=== PATIENT | female | born 1990 | race Two or more races ===

== ENCOUNTER 2024-06-05 05:14 | Inpatient (IN) | payer MEDICAID ==
[2024-06-03 11:59] LABS: Basophils # (auto) 0 10 ^3/uL (0-0.2); Basophils % (auto) 0.7 % (0.0-2.0); Eosinophils # (auto) 0 10 ^3/uL (0-0.8); Eosinophils % (auto) 0.4 % (0.0-7.0); Hematocrit 37.9 % (36.0-46.0); Lymphocytes # (auto) 1.1 10 ^3/uL (0.4-5.4); Lymphocytes % (auto) 16.2 % (10.0-50.0); Mean Corpuscular Hemoglobin 32.7 pg (28.0-32.0); Mean Corpuscular Hgb Conc. 34.3 g/dL (32.0-36.0); Mean Corpuscular Volume 95.4 fL (80.0-100.0); Monocytes # (auto) 0.6 10 ^3/uL (0-1.3); Monocytes % (auto) 8.7 % (0.0-12.0); Neutrophils # (auto) 4.9 10 ^3/uL (1.6-8.6); Platelet Count (auto) 312 10^3/uL (140-450); Red Blood Cells 3.97 10^6/uL (4.0-5.20); Red Cell Distribution Width 12.8 % (11.8-14.3); White Blood Cell 6.7 10^3/uL (4.4-10.8)
[2024-06-03 12:12] LABS: INR 0.92 (0.9-1.15); Partial Thromboplastin Time 26.1 SEC (24.5-34.5); Prothrombin Time 9.8 sec (9.3-11.8)
[2024-06-03 12:13] LABS: Alanine Aminotransferase 27 U/L (7-40); Albumin 4.1 g/dL (3.2-4.8); Alkaline Phosphatase 293 U/L (46-116); Anion Gap 6 (5-15); Aspartate Aminotransferase 30 U/L (13-40); Calcium 9.5 mg/dL (8.7-10.4); Carbon Dioxide 25 mmol/L (20-31); Chloride 107 mmol/L (98-107); Glucose 76 mg/dL (74-106); Potassium 3.5 mmol/L (3.5-5.1); Sodium 138 mmol/L (136-145)
[2024-06-03 12:14] LABS: BUN/Creatinine Ratio 6.9 (10.0-20.0); Bilirubin, Total 1.5 mg/dL (0.2-1.0); Blood Urea Nitrogen < 5 mg/dL (9-23); Total Protein 7.2 g/dL (5.7-8.2)
[2024-06-03 12:30] LABS: Amphetamine Screen, Urine Neg (NEGATIVE); Barbiturate Scree,Urine Neg (NEGATIVE); Benzodiazephine Screen, Urine Neg (NEGATIVE); Cocaine Screen, Urine Neg (NEGATIVE); Opiate Scree,Urine Neg (NEGATIVE)
[2024-06-03 12:31] LABS: Cannabinoid Screen, Urine Pos (NEGATIVE); Phencyclidine Screen, Urine Neg (NEGATIVE)
[2024-06-03 12:51] LABS: Urine Bacteria FEW /hpf (None Seen); Urine Blood Negative /uL (Negative); Urine Clarity Clear (Clear); Urine Color Light-Yellow (Yellow); Urine Protein, UAD Negative (Negative); Urine Specific Gravity 1.007 (1.001-1.035); Urine Urobilinogen Normal (Negative); Urine WBC 1 /hpf (0 - 5); Urine pH 5.5 (5.0-9.0)
[2024-06-04 08:06] LABS: RPR Non Reactive (Non Reactive)
[~2024-06-05] VITALS: Ht 154.9 cm; Wt 54.4 kg
[2024-06-05] VITALS (13 sets, daily range): BP systolic 98–117; BP diastolic 63–82; PULSE 57–82; RESP 14–20; TEMP 97.6–98.6; O2SAT 95–100
[2024-06-05] MEDS: LACTATED RINGER'S 1,000 ML IV ONE (06:55)
[2024-06-05] MEDS: LACTATED RINGER'S 1,000 ML IV SCH (06:55)
[2024-06-05 07:02] LABS: Alanine Aminotransferase 19 U/L (7-40); Albumin 3.9 g/dL (3.2-4.8); Alkaline Phosphatase 256 U/L (46-116); Anion Gap 8 (5-15); Aspartate Aminotransferase 29 U/L (13-40); BUN/Creatinine Ratio 9.6 (10.0-20.0); Blood Urea Nitrogen 8 mg/dL (9-23); Calcium 9.6 mg/dL (8.7-10.4); Carbon Dioxide 21 mmol/L (20-31); Chloride 108 mmol/L (98-107); Glucose 79 mg/dL (74-106); Potassium 3.9 mmol/L (3.5-5.1); Sodium 137 mmol/L (136-145); Total Protein 6.4 g/dL (5.7-8.2)
--- NOTE | 2024-06-05 07:14 | DVHHP2 ---
OB CC & HPI Date Date of Admission: Jun 05, 2024 Patient Identification: : 7 Para: 3 EDC: Jun 14, 2024 EGA: 38WKS Chief Complaints: Reason for admission: active labor Indication for : desires repeat Admission Nurse Assessment Rev: No History of Present Complaints PT IS ADMITTED IN LABOR FOR RCS ,SHE HAS BEEN NONCOMPLIANT WITH HER CARE. SHE HAD 3 PREVIOUS CSX3 AND DESIRES RCS BUT NO TUBAL Past Medical History Cardiac: No pertinent Hx Pulmonary: No pertinent Hx Central Nervous System: No pertinent Hx GI: No pertinent Hx Hemotology/Oncology: No pertinent Hx Hepatobiliary: No pertinent Hx Psychiatric: No pertinent Hx Musculoskeletal: No pertinent Hx Rheumotologic: No pertinent Hx Infectious Disease: No peritnent Hx ENT: No pertinent Hx Renal/: No pertinent Hx Endocrine: No pertinent Hx Dermatology: No pertinent Hx Past Surgical History: OB History OB History Care: Limited Care Ultrasounds: Normal mid trimester US Obstetrical Complications: None Medical Complications: None Allergies: Coded Allergies: NO KNOWN ALLERGIES (Unverified , 06/05/24) Current Medications Current Medications Medications (Trade) Dose Ordered Sig/Terry Route PRN Reason Start Time Stop Time Status Last Admin Lactated Ringer's 1,000 ml @ 125 mls/hr Q8H IV 06/05/24 05:30 06/05/24 06:55 Family & Social History Family/Social History Blood Type: Unknown Rubella: unknown RPR/VDRL: Negative GBS Status: Negative HBsAG: Negative Review of Systems Constitutional: No symptom reported Ears, Nose, & Throat: No symptom reported Eyes: No symptom reported Pulmonary/Respiratory: No symptom reported Cardiovascular: No symptom reported Gastrointestinal: No symptom reported Genitourinary: No symptom reported Musculoskeletal: No symptom reported Skin: No symptom reported Psychiatric: No symptom reported Endocrine: No symptom reported Hemotologic/Lymphatic: No symptom reported OB Admission Exam Physical Exam HEENT: TMs Normal, Fontanelles Normal, Nasal Mucosa Normal, Eyes non-injected, Oropharynx Normal, PERRLA, Moist Membranes, EOMI Heart: Rhythm Normal Lungs: Clear Abdomen: Non tender Extremities: Normal Reflexes: Normal Cervical Dilatation: 1cm Effacement: 25% Station: -2 Membranes: Intact Heart Rate: 130's Accelerations: Accelerations Present Decelerations: No Decelerations Short Term Variability: Present Chcf Variability: Average (6-25) Contractions on Admission: < 5 Minutes Apart Intensity: Moderate OB Plan Plan Admitting Diagnosis: IUP AT 38 WKS IN EARLY LABOR DESIRES RCS Plan: Section Other Plan: INFORMED CONSENT OBTAINED ,RISK S AND COMPL OF CS D/W PT.POSSIB OF BLEEDING,INFXN PE,DVT D/W PT.ALL QUESTIONS ANSWERED PT FULLY UNDERSTANDS WISHES TO PROCEED W/RCS LEANNA WILHELM DO Jun 05, 2024 07:14
[2024-06-05] MEDS ORDERED: IBUP-1456 PO (07:15)
[2024-06-05] MEDS ORDERED: DOCU-94 PO (07:15)
[2024-06-05] MEDS ORDERED: HYDR-4072 PO (07:15)
[2024-06-05 07:31] LABS: Urine Bacteria None Seen /hpf (None Seen)
[2024-06-05 07:37] LABS: Basophils # (auto) 0 10 ^3/uL (0-0.2); Basophils % (auto) 0.4 % (0.0-2.0); Eosinophils # (auto) 0 10 ^3/uL (0-0.8); Eosinophils % (auto) 0.4 % (0.0-7.0); Hematocrit 36.8 % (36.0-46.0); Hemoglobin 12.7 g/dL (12.2-16.2); Lymphocytes # (auto) 1.1 10 ^3/uL (0.4-5.4); Lymphocytes % (auto) 15.1 % (10.0-50.0); Mean Corpuscular Hgb Conc. 34.6 g/dL (32.0-36.0); Mean Corpuscular Volume 95.4 fL (80.0-100.0); Monocytes # (auto) 0.9 10 ^3/uL (0-1.3); Monocytes % (auto) 11.6 % (0.0-12.0); Neutrophils # (auto) 5.4 10 ^3/uL (1.6-8.6); Neutrophils % (auto) 72.5 % (37.0-80.0); Nucleated Red Blood Cells % 0.4 %; Platelet Count (auto) 308 10^3/uL (140-450); Red Blood Cells 3.86 10^6/uL (4.0-5.20); Red Cell Distribution Width 13.2 % (11.8-14.3); White Blood Cell 7.4 10^3/uL (4.4-10.8)
[2024-06-05 07:50] LABS: Urine Blood Negative /uL (Negative); Urine Clarity Clear (Clear); Urine Color Light-Yellow (Yellow); Urine Protein, UAD Negative (Negative); Urine Specific Gravity 1.012 (1.001-1.035); Urine Urobilinogen Normal (Negative); Urine WBC <1 /hpf (0 - 5)
[2024-06-05 08:15] LABS: Amphetamine Screen, Urine Neg (NEGATIVE)
[2024-06-05 08:16] LABS: Barbiturate Scree,Urine Neg (NEGATIVE); Benzodiazephine Screen, Urine Neg (NEGATIVE); Cannabinoid Screen, Urine Pos (NEGATIVE); Cocaine Screen, Urine Neg (NEGATIVE); Opiate Scree,Urine Neg (NEGATIVE); Phencyclidine Screen, Urine Neg (NEGATIVE)
[2024-06-05] MEDS: ceFAZolin 2 GM/D5W50ml 50 ML IV ONE (08:23)
[2024-06-05] MEDS ORDERED: ONDANSETRON HCL 4 MG/2 ML VIAL IV PRN (08:30)
[2024-06-05] MEDS ORDERED: ceFAZolin 1GM/50ML 50 ML IV SCH (08:30)
[2024-06-05] MEDS: GUM (CHEWING) 1 GUM CHEW CHEW ONE (08:30)
--- NOTE | 2024-06-05 09:31 | DVHOP2 ---
Operative Report DATE OF OPERATION:06/05/24 PREOPERATIVE DIAGNOSES: [iup at 38+wks in labor,desires rcs,noncompliant with penatal acre ,nuchal cordx1,thc pos ,drug use ] POSTOPERATIVE DIAGNOSES: [same] OPERATION PERFORMED: Repeat Section FINDINGS: [f] . Apgars of [9] and [9]. Weight [5-7] [good] crying tone. [clear ] amniotic fluid. Placenta and three-vessel were intact. Normal tubes, ovaries, and uterus. Moderate scar tissue. SURGEON: Shari Armenta D.O. BODY TECHNICIAN/PAINTER: burner technician, [nicolasa]. ANESTHESIOLOGIST: Abel sanchez ANESTHESIA: [Duramorph spinal, regional]. COMPLICATIONS: [none]. ESTIMATED BLOOD LOSS: [500] mL. BLOOD PRODUCTS USED: [na]. PROCEDURE IN DETAIL: The patient was taken to the operating room, placed in sitting position, and spinal was placed without difficulty. She was then prepped and draped in a sterile fashion. A low Pfannenstiel incision was made scapel. At this point, it was carried down through the rectus fascia, nicked in the midline, and carried laterally. The rectus muscles were in the midline. Peritoneum was identified and entered with sharp dissection. Vesicouterine peritoneum was taken off the lower uterine segment. A lower uterine transverse incision was made with a scalpel down the chorionic membranes, ruptured with hemostat. was in vertex position. One hand was placed in the lower uterine segment. Head was essentially delivered spontaneously. Nose and mouth were bulb suctioned. Shoulders and torso were delivered without difficulty. Again, pharynx, nose, and mouth were re-suctioned with vigorous crying tone. Cord was cut. The infant was handed off to the awaiting Respiratory. At this point, umbilical blood sample was taken. Placenta was removed. Uterus was exteriorized, cleared off all clots and debris, irrigated, and closed with a double layer of 0-Vicryl. The vesicouterine peritoneum was incorporated into this closure. We had complete hemostasis. EBL was [500] mL. The instrument, lap, and sponge count was correct x1. The uterus was placed back into the peritoneum. The peritoneal cavity was re-inspected and the lower uterine incision with good hemostasis. We closed the peritoneum with running continuous of 2-0 Vicryl. The Rectus Fascia was closed with 0-PDS, running continuous, looped-0. The skin was closed undermined, irrigated, and close with jennifer. CONDITION: The patient's and the infant's condition is stable and but guarded. SHARI ARMENTA DO Jun 05, 2024 09:31
--- NOTE | 2024-06-05 09:34 | POSTOP ---
Post-Operative Note Post-Operative Note Preop Diagnosis iup at 38wks in labor,thc pos,desires rcs,non compliant with noncompliancy,nuchal cord,previous csx3 Postop Diagnosis: same Operation performed rcs Specimen baby girl,apgars 9-9,pelvic adhesion Anesthesia: Regional Anesthesiologist: jocelyn Blood Loss(fluid mgmt) 500ml Surgeon Leanna Armenta Observer Gravity Prospecting nicolasa Implant na Complications & Mgmt none Date 06/05/24 Time 09:32 LEANNA ARMENTA DO Jun 05, 2024 09:34
[2024-06-05] MEDS: diphenhdrAMINE HCL 50 MG/1 ML VL IV PRN (11:39)
[2024-06-05] MEDS: LACT. RINGERS/OXYTOCIN 20UNITS 1,000 ML IV ONE (12:10)
[2024-06-05] MEDS: ceFAZolin 1GM/50ML 50 ML IV SCH (16:29)
[2024-06-05] MEDS: ACETAMINOPHEN IV 1000 MG/100ML (10MG/ML) IV PRN (17:15)
[2024-06-05 21:32] LABS: Basophils # (auto) 0 10 ^3/uL (0-0.2); Basophils % (auto) 0.1 % (0.0-2.0); Eosinophils # (auto) 0 10 ^3/uL (0-0.8); Hemoglobin 7.6 g/dL (12.2-16.2)
[2024-06-05 21:33] LABS: Hematocrit 22.1 % (36.0-46.0); Lymphocytes # (auto) 0.5 10 ^3/uL (0.4-5.4); Lymphocytes % (auto) 4.2 % (10.0-50.0); Mean Corpuscular Hemoglobin 33.2 pg (28.0-32.0); Mean Corpuscular Hgb Conc. 34.5 g/dL (32.0-36.0); Mean Corpuscular Volume 96.2 fL (80.0-100.0); Monocytes # (auto) 0.7 10 ^3/uL (0-1.3); Monocytes % (auto) 5.8 % (0.0-12.0); Neutrophils # (auto) 10.2 10 ^3/uL (1.6-8.6); Neutrophils % (auto) 89.9 % (37.0-80.0); Nucleated Red Blood Cells % 0.1 %; Platelet Count (auto) 175 10^3/uL (140-450); Red Blood Cells 2.29 10^6/uL (4.0-5.20); Red Cell Distribution Width 12.9 % (11.8-14.3); White Blood Cell 11.3 10^3/uL (4.4-10.8)
[2024-06-05 22:51] LABS: Basophils # (auto) 0 10 ^3/uL (0-0.2); Basophils % (auto) 0.3 % (0.0-2.0); Eosinophils # (auto) 0 10 ^3/uL (0-0.8); Hematocrit 32.4 % (36.0-46.0); Hemoglobin 11.2 g/dL (12.2-16.2); Lymphocytes # (auto) 0.7 10 ^3/uL (0.4-5.4); Lymphocytes % (auto) 4.4 % (10.0-50.0); Mean Corpuscular Hemoglobin 32.7 pg (28.0-32.0); Mean Corpuscular Hgb Conc. 34.5 g/dL (32.0-36.0); Mean Corpuscular Volume 94.9 fL (80.0-100.0); Monocytes # (auto) 0.9 10 ^3/uL (0-1.3); Monocytes % (auto) 5.4 % (0.0-12.0); Neutrophils # (auto) 15.1 10 ^3/uL (1.6-8.6); Neutrophils % (auto) 89.9 % (37.0-80.0); Platelet Count (auto) 274 10^3/uL (140-450); Red Blood Cells 3.42 10^6/uL (4.0-5.20); Red Cell Distribution Width 12.8 % (11.8-14.3); White Blood Cell 16.7 10^3/uL (4.4-10.8)
[2024-06-06] VITALS (14 sets, daily range): BP systolic 104–128; BP diastolic 63–86; PULSE 59–72; RESP 16–18; TEMP 97.4–98.4; O2SAT 96–99
--- NOTE | 2024-06-06 06:41 | DVHPN2 ---
Progress Note Date Seen: Jun 06, 2024 Subjective S: Lochia minimal. Ambulating and voiding well w/o feeling dizzy or lightheaded. Pain relieved with analgesics. Passing flatus but no BM yet. w/o problem Desires & Requests to be discharged tomorrow vital signs Vital Sign Date Time Temp Pulse Resp B/P (MAP) Pulse Ox O2 Delivery O2 Flow Rate FiO2 06/06/24 05:00 63 18 125/86 (99) 97 06/06/24 03:00 98.2 98.2 06/05/24 19:00 Room Air 06/05/24 10:05 0 06/05/24 10:05 100 Total Intake and Output 06/05/24 06/05/24 06/06/24 15:00 23:00 07:00 Intake Total 50 ml Output Total 350 ml 950 ml 1000 ml Balance -300 ml -950 ml -1000 ml medications Current Medications Medications Dose Ordered Sig/Terry Route Start Time Stop Time Status Last Admin Dose Admin Lactated Ringer's 1,000 ml @ 125 mls/hr Q8H IV 06/05/24 05:30 06/05/24 21:56 125 MLS/HR Ondansetron HCl 4 mg Q4HP PRN IV 06/05/24 08:30 Cefazolin Sodium 50 ml @ 100 mls/hr Q8H IV 06/05/24 16:30 06/06/24 08:59 06/06/24 00:17 100 MLS/HR Acetaminophen 1,000 mg Q8HPRN PRN IV 06/05/24 10:30 06/06/24 10:29 06/06/24 01:19 1,000 MG Diphenhydramine HCl 25 mg Q4HP PRN IV 06/05/24 11:30 06/05/24 15:31 25 MG laboratory and microbiology Laboratory Tests 06/05/24 22:27 06/05/24 05:54 Test 06/05/24 05:54 Range/Units Serum Glucose 79 74-106 mg/dL Objective O: A&O x3 NAD. Afebrile, VSS Chest: heart and lung sounds normal. Breasts: Nipples intact w/o cracks or soreness Abdomen: normal BS, soft, non-tender, no rebound or guarding, fundus firm @ U- 1, Lower abdominal Incision site with steri-strips on, open to fresh air same clean, dry and intact. Incision edges in good approximation. No edema, erythema or induration Extremities: no edema or tenderness Lochia - minimal Assessment/Plan A/P: 34 yo now Post operative & ppd # s/p Repeat Section doing well. Blood Type: O Rh: Positive Formula feeding Rubella: Unknown Pain control with oral medications Bowel regimen: Increase fluid intake and fiber in diet, Laxative PRN Discharge plan: May discharge home tomorrow if condition remains stable Plan discussed with: Patient, Spouse KELBYALEYDA CNM Jun 06, 2024 06:41
[2024-06-06] MEDS ORDERED: BISACODYL 10 MG RECT SUPP PR PRN (08:45)
[2024-06-06 09:46] LABS: Basophils # (auto) 0.1 10 ^3/uL (0-0.2); Basophils % (auto) 0.4 % (0.0-2.0); Eosinophils # (auto) 0 10 ^3/uL (0-0.8); Eosinophils % (auto) 0.1 % (0.0-7.0); Hematocrit 30.8 % (36.0-46.0); Hemoglobin 10.6 g/dL (12.2-16.2); Lymphocytes # (auto) 1.4 10 ^3/uL (0.4-5.4); Mean Corpuscular Hgb Conc. 34.4 g/dL (32.0-36.0); Mean Corpuscular Volume 95.8 fL (80.0-100.0); Monocytes # (auto) 0.8 10 ^3/uL (0-1.3); Monocytes % (auto) 6.1 % (0.0-12.0); Neutrophils # (auto) 10.7 10 ^3/uL (1.6-8.6); Neutrophils % (auto) 82.4 % (37.0-80.0); Nucleated Red Blood Cells % 0.1 %; Platelet Count (auto) 275 10^3/uL (140-450); Red Blood Cells 3.21 10^6/uL (4.0-5.20); Red Cell Distribution Width 13.1 % (11.8-14.3); White Blood Cell 12.9 10^3/uL (4.4-10.8)
[2024-06-06] MEDS: DOCUSATE CALCIUM 240 MG CAP PO SCH (11:04)
[2024-06-06] MEDS: DOCUSATE SOD 100 MG CAP PO SCH (11:04)
[2024-06-06] MEDS: HYDROcodone-ACET 5/325MG TAB PO PRN (11:04)
[2024-06-06] MEDS: SIMETHICONE 80 MG CHEWABLE TABLET PO SCH (12:00)
[2024-06-06] MEDS: IBUPROFEN 800 MG TAB PO PRN (14:55)
--- NOTE | 2024-06-07 02:25 | DVHPN2 ---
Progress Note Date Seen: Jun 07, 2024 Subjective S: Lochia minimal. Regular diet well tolerated. Ambulating and voiding well w/o feeling dizzy or lightheaded. Pain relieved with oral analgesics. Passing flatus but no BM yet. w/o problem Desires & Requests to be discharged today vital signs Vital Sign Date Time Temp Pulse Resp B/P (MAP) Pulse Ox O2 Delivery O2 Flow Rate FiO2 06/06/24 23:20 97.4 69 16 104/70 (81) 99 97.4 06/06/24 19:30 Room Air 06/05/24 10:05 0 06/05/24 10:05 100 Total Intake and Output 06/06/24 06/06/24 06/07/24 15:00 23:00 07:00 Output Total 450 ml Balance -450 ml medications Current Medications Medications Dose Ordered Sig/Terry Route Start Time Stop Time Status Last Admin Dose Admin Docusate Calcium 240 mg DAILY PO 06/06/24 10:00 06/06/24 11:04 240 MG Docusate Sodium 100 mg Q12HR PO 06/06/24 10:00 06/06/24 23:21 100 MG Dimethicone 80 mg QID PO 06/06/24 12:00 06/06/24 23:21 80 MG Bisacodyl 10 mg DAILYP PRN WI 06/06/24 08:45 Ibuprofen 800 mg Q8HP PRN PO 06/06/24 08:45 06/06/24 23:22 800 MG Acetaminophen/ Hydrocodone Bitart 2 tab Q4HPRN PRN PO 06/06/24 08:45 06/06/24 17:43 2 TAB laboratory and microbiology Laboratory Tests 06/06/24 08:37 06/05/24 05:54 Test 06/05/24 05:54 Range/Units Serum Glucose 79 74-106 mg/dL Objective O: A&O x3 NAD. Afebrile, VSS Chest: heart and lung sounds normal. Breasts: Nipples intact w/o cracks or soreness Abdomen: normal BS, soft, non-tender, no rebound or guarding, fundus firm @ U- 1, Lower abdominal Incision site with steri-strips on, same clean, dry and intact. Incision edges in good approximation. No edema, erythema or induration Extremities: no edema or tenderness Lochia - minimal Assessment/Plan 34 yo now Post operative & ppd #2 s/p Repeat Section, IUGR, Anemia, doing well. Anemia, THC positive Blood Type: O Rh: Positive Formula feeding Rubella Unknown; report pending Pain control with oral medications Post BCM Plan: Depo injection Bowel regimen: Increase fluid intake and fiber in diet, Laxative PRN Discharge plan: May discharge home later today if condition remains stable Plan discussed with: Patient, Spouse ALEYDA LAMA CNM Jun 07, 2024 02:25
--- NOTE | 2024-06-07 02:37 | DVHDS2 ---
Obstetrics Discharge Summary Obstetrics Discharge Summary Date of Admission: Jun 05, 2024 Date of Discharge: Jun 07, 2024 Reason For Admission: Section (Repeat) Procedures: None Intrapartum Procedures: (Low Cervical Transverse) Procedures: None, Hct/date: (30.8% on 06/06/24), Hgb/date: (10.6g/dL on 06/06/24) Operative Complicat: None Discharge Diagnosis: Term -Delivered, Others (IUGR, Anemia ) Discharge Information: Activity (Unrestricted. Advance as tolerated. No heavy lifting, pushing or straining. Pelvic rest x 6weeks), Diet (Routine regular diet rich in fiber, protein, iron and vitamin C with adequate fluid intake.), Medications (Ibuprofen 600mg every 6 hours as needed for pain. Continue Vitamin and iron), Instructions (Post operative and self care instructions given. emergency signs and symptoms including pre- eclampsia precautions and signs of PPD reviewed with patient. Follow up with OB Provider in 1 week), Discharge to (Home) ALEYDA LAMA CNM Jun 07, 2024 02:37
[2024-06-07 03:20] VITALS: BP 123/77; PULSE 67; RESP 16; TEMP 98.1; O2SAT 99
[2024-06-07 07:00] VITALS: BP 117/73; PULSE 79; RESP 18; TEMP 98; O2SAT 98
[2024-06-07 10:06] LABS: Treponema Pallidum Ab LC Non Reactive (Non Reactive)
[2024-06-08 02:06] LABS: Rubella Antibodies, IgG 1.42 index (Immune >0.99)
== END 2024-06-07 14:54 | disposition home or self-care (01) | DRG 540 ==
LOC: LDRP 05:14
PROVIDERS: ADMIT Obstetrics & Gynecology; ATTEND Obstetrics & Gynecology
PROC: 10D00Z1 Extraction of Products of Conception, Low, Open Approach (ICD-10-PCS; principal; 2024-06-05 08:44)
DX: O34.219 Maternal care for unspecified type scar from previous cesarean delivery (principal); R71.0 Precipitous drop in hematocrit; O36.5930 Maternal care for other known or suspected poor fetal growth, third trimester, not applicable or unspecified; Z3A.38 38 weeks gestation of pregnancy; Z37.0 Single live birth; O69.81X0 Labor and delivery complicated by cord around neck, without compression, not applicable or unspecified; Z91.199 Patient's noncompliance with other medical treatment and regimen due to unspecified reason
CPT/HCPCS: 36415; 80053; 80307; 81001; 81002; 83036; 85025; 85610; 85730; 86592; 86703; 86762; 86780; 86803; 86850; 86900; 86901; 87340; 94760; 94762; 96360; 96361; 96365; 96366; G0378; J0131; J2590